=== PATIENT | female | born 2000 | race Two or more races ===

== ENCOUNTER 2023-01-22 11:26 | Emergency (ER) | payer OTHER ==
[~2023-01-22] VITALS: Ht 160 cm; Wt 120.2 kg
[2023-01-22 13:11] LABS: MEAN CELL VOLUME 82.4 fL (80.00-100.00); MEAN CORPUSCULAR HEMOGLOBIN 27.4 pg (27.00-32.0); MEAN CORPUSCULAR HGB CONC 33.3 g/dl (32.0-36.0); PLATELET COUNT 282 K/uL (150-450); RED BLOOD COUNT 4.73 M/uL (4.00-6.00); RED CELL DISTRIBUTION WIDTH 14.3 % (11.5-14.5)
[2023-01-22 13:43] LABS: CALCIUM 9.1 mg/dL (8.5-10.1); CREATININE SERUM 0.62 mg/dL (0.55-1.02); GFR 120.37; POTASSIUM 3.79 mEq/L (3.5-5.1)
[2023-01-22] MEDS ORDERED: PEPCID AC20 MG PO (17:26)
[2023-01-22] MEDS ORDERED: CIPRO500 MG PO (17:26)
[2023-01-22] MEDS ORDERED: DICY20TA PO (17:26)
[2023-01-22] MEDS ORDERED: METRONIDAZOLE500 MG PO (17:26)
[2023-01-22] MEDS ORDERED: INTESTINEX680 M1 PO (17:26)
== END 2023-01-22 20:00 | disposition home or self-care (01) ==
LOC: ER 11:26
PROVIDERS: Emergency Medicine
DX: K52.89 Other specified noninfective gastroenteritis and colitis (principal); A09 Infectious gastroenteritis and colitis, unspecified